=== PATIENT | female | born 1950 | race Caucasian/White ===

== ENCOUNTER 2022-04-20 12:56 | Day surgery (SDC) | payer MEDICARE, BC ==
[~2022-04-20 12:56] MED LIST: Lactated Ringers 1,000 ML IV SCH
[2022-04-20] MEDS ORDERED: DIPRIVAN 200 MG/20 ML IV ONE ×4 (13:35→14:19)
[2022-04-20] MEDS ORDERED: Versed 2 MG/2 ML Injection ONE (13:35)
[2022-04-20] MEDS ORDERED: Lactated Ringers 1,000 ML IV ONE (13:48)
[2022-04-20] MEDS ORDERED: GlucaGen 1 MG ONE (14:24)
[2022-04-20] MEDS ORDERED: TYLENOL EXTRA STRENGTH 500 MG ONE (15:38)
[2022-04-20] MEDS ORDERED: TYLENOL EXTRA STRENGTH 500 MG PO STA (15:41)
[2022-04-20 15:49] VITALS: BP 177/77; PULSE 66; O2SAT 95
--- NOTE | 2022-04-21 09:07 | OP ---
PROCEDURE DATE/TIME: 04/20/2022 1345 PREOPERATIVE DIAGNOSES: 1) History of gastric polyps. 2) Gastroesophageal reflux disease. 3) Dysphagia. 4) Colon polyps. POSTOPERATIVE DIAGNOSES: 1) Severe gastric polyposis. 2) Gastritis with two superficial ulcerations. 3) Minimal hiatal hernia versus physiologic weakness. 4) Diverticulosis. 5) Colonic polyp. 6) Hemorrhoid disease. PROCEDURES: 1) EGD with hot snare polyps and cold biopsies (21) by hot snare. 2) Colonoscopy with hot snare polyps and cold forceps polyps. PROCEDURE PERFORMED BY: Alondra Carroll M.D. ANESTHESIA: MAC. ESTIMATED BLOOD LOSS: Minimal. COMPLICATIONS: None. SPECIMENS: 1) Gastric polyp antral biopsy. 2) Cecal polyp. 3) Descending colon polyp. HISTORY: This is a patient who presents due to history of gastric polyps. She also has reflux symptoms as well as intermittent dysphagia. She also has a history of colon polyps and she is here for colon surveillance. Risks, benefits, alternatives, H&P, consent all reviewed with her and confirmed. All questions were answered to her satisfaction. DESCRIPTION OF PROCEDURE: We brought her back to the endoscopy suite. She was laid in the left lateral decubitus position. A complete time out performed. The scope was inserted into the mouth, oropharynx, down into the esophagus, stomach and then the duodenum. The duodenum was normal and this was seen to the level of the second portion of the duodenum. The scope was then carefully withdrawn back into the stomach antrum. The stomach is definitely loaded with polyps. There are polyps throughout the entire body stomach then to the antrum. There are some in the cardia as well but the entire body has extremely large polyps too including normal sized polyps that are less than 1 cm and then the large polyps that appear to be at least 2 to 2.5 cm all the polyps looked pedunculated and some of them do look inflamed. I took antral biopsies and sent these to pathology for review and to rule out Helicobacter pylori. Outside of the polyps, she had two superficial ulcerations at the junction of the lower body and antrum. We then proceeded to take 21 polyps out for sampling. I took polyps of all sizes and shapes to get a good sample and we focused our attention on the polyps that had significant erythema. At the completion of this there were no polyps of great concern but again she has so many innumerable polyps in all folds and on top of each other but I do think that she will need close follow up of the polyps over her lifetime due to the size and the amount. Each polyp was taken with hot snare. A few were retrieved in the suction trap but many had to be removed individually and the largest was removed with a net. All were retrieved successfully and these were all sent to pathology. The largest polyp was about 2.2 to 2.5 mm in size. We then checked all our sites. Each site looked hemostatic. Each site looked good. The stomach maintained nice insufflation. There were no concerns here. We then carefully withdrew the scope back into the distal esophagus and we carefully withdrew the scope further. The esophagus overall looked normal except for a subtle physiologic weakness at the gastroesophageal junction which is at 37.5. There is no large hiatal hernia here just a very subtle weakness here. She also had one small esophageal varices in her cervical esophagus which was very minimal in size and flattened easily. The scope was then fully removed. I did not find any strictures in her esophagus. The patient tolerated the procedure very well. There were no immediate complications. She was then repositioned for colonoscopy. First, a rectal exam was done. She has two anterior tags with mild internal and external hemorrhoid disease. The scope was then inserted and gently advanced to the level of the cecum. The appendiceal orifice and ileocecal valve were visualized and these were normal. Her prep overall was good. We irrigated and suctioned the small amount of liquid stool. We took a circumferential view as we carefully withdrew the scope. The patient did have the following findings. She had diverticulosis of the left colon with multiple small pockets. She also had two colon polyps. There was one in the cecum that was miniscule about 1 to 2 mm in size taken in entirety with cold forceps, retrieved. Site hemostatic. She also had a polyp in the descending colon which was about 4 to 5 mm in size, semi-sessile. It was taken with hot snare and retrieved with cold forceps this was removed entirely and retrieved appropriately and sent to pathology. The remainder of the colon appeared to be healthy. The scope was then able to be removed outside of the internal hemorrhoids. The remainder of the rectal visualization was normal. The scope was then completely withdrawn. The patient tolerated the procedure very well. There are no immediate complications. She is going to be following up with me as an outpatient. I have discussed all of the preliminary findings with her family. She does also have instructions for full liquid diet and then a soft diet due to a number of large polyps that were removed from her stomach. RECOMMENDATIONS: Reminder EGD six months. Reminder colonoscopy three years.
== END 2022-04-20 15:55 | disposition home or self-care (01) ==
LOC: SDC 12:56
PROVIDERS: ATTEND Surgery
DX: Z09 Encounter for follow-up examination after completed treatment for conditions other than malignant neoplasm (principal); Z87.19 Personal history of other diseases of the digestive system; K21.9 Gastro-esophageal reflux disease without esophagitis; R13.10 Dysphagia, unspecified; K31.7 Polyp of stomach and duodenum; K29.70 Gastritis, unspecified, without bleeding; K44.9 Diaphragmatic hernia without obstruction or gangrene; K57.30 Diverticulosis of large intestine without perforation or abscess without bleeding; K64.4 Residual hemorrhoidal skin tags; K64.8 Other hemorrhoids; D12.0 Benign neoplasm of cecum; D12.4 Benign neoplasm of descending colon
CPT/HCPCS: 99100; J1610; J2250; J2704; A9270-GY

== ENCOUNTER 2022-12-14 09:51 | Day surgery (SDC) | payer MEDICARE, BC ==
[2022-12-14 10:19] VITALS: RESP 16
[2022-12-14] MEDS ORDERED: Lactated Ringers 1,000 ML IV SCH (10:30)
[2022-12-14] MEDS ORDERED: Xylocaine-Mpf 2% 5 Ml Vial ONE (10:48)
[2022-12-14] MEDS ORDERED: DIPRIVAN 200 MG/20 ML IV ONE ×2 (10:48→11:10)
[2022-12-14] MEDS ORDERED: Versed 2 MG/2 ML Injection ONE (10:48)
[2022-12-14 12:27] VITALS: TEMP 97.6
[2022-12-14 12:29] VITALS: BP 161/82; PULSE 70; O2SAT 98
--- NOTE | 2022-12-15 12:32 | OP ---
SURGERY DATE: 12/14/2022 SURGERY TIME: 1050 PREOPERATIVE DIAGNOSIS: 1. SEVERE GASTRIC POLYPOSIS. POSTOPERATIVE DIAGNOSIS: 1. SEVERE GASTRIC POLYPOSIS. 2. MILD GASTROESOPHAGEAL REFLUX DISEASE. 3. MILD GASTRITIS. 4. SMALL ESOPHAGEAL VARICES (1 PROXIMAL, 1 MIDDLE). PROCEDURE: 1. EGD with hot snare polypectomy X 11 and cold biopsies. SURGEON: Dr. Alondra Carroll. ANESTHESIA: MAC. ESTIMATED BLOOD LOSS: Minimal. COMPLICATIONS: None. SPECIMENS: 1. Gastric body polyps and antral biopsy. PROCEDURE DETAILS: This is a patient who presents with significant gastric polyp disease here for surveillance EGD. Risks, benefits, and alternatives have been discussed with her in detail. She understands and agrees. Her H&P and consent have all been reviewed with her and completed. All questions answered to her satisfaction. She wants to proceed. She was then brought back to the endoscopy suite. Laid in the left lateral decubitus position. A complete time-out was performed. The scope was gently introduced into the mouth, oropharynx, down into the esophagus, stomach, and into the duodenum. The first portion of the duodenum and the proximal second portion appeared normal. The scope was withdrawn back into the gastric body. The patient does have a history of significant gastric polyps. Her gastric polyps were severe. She had many that were enlarged and inflamed. These were extensive. There was essentially a cluster of so many polyps overlying each other that when we entered they even bulge out into the lumen. Please see the pictures. I took sampling by removing 11 of these polyps. Any polyps of concern were removed. We did remove some of the largest and most inflammatory appearing polyps. I do not see any other lesions of concern. Again, there is a significant amount of stomach mucosa that is not visualized due to the extensive polyp disease covering the majority of some of the mucosa in many areas including the body which the polyps are the worst. I did also have to use a net to remove each polyp because of their large size. The polyps removed were approximately 1-2 cm in size, all sent to pathology for final review. All sites were hemostatic. The patient tolerated these biopsies very well. I then took cold forceps biopsies in the antrum and then sent these to pathology. Again, we have removed 11 polyps by hot snare. We did cold forceps biopsies in the antrum. All sites looked hemostatic. Everything looks good. There are no complications. The scope was then withdrawn back into the distal esophagus. The patient has very mild reflux changes. No sign of Liu's. When we further withdrew the scope, the mucosa itself in the remainder of the esophagus was normal. She had 2 very small varices, 1 proximally and 1 in the middle of her esophagus, and these were less than 5 mm, very small, and subtle. Patient tolerated the procedure well. There are no immediate complications. I recommended an anti-reflux diet and lifestyle to her. I have discussed this with her family member and I have also discussed that if this can keep her symptoms at bay, the goal would be to decrease her proton pump inhibitor to qod to see if this will help decrease the extensive nature of the polyps. PLAN: EGD in 6 months for surveillance of severe gastric polyposis.
== END 2022-12-14 12:36 | disposition home or self-care (01) ==
LOC: SDC 09:51
PROVIDERS: ATTEND Surgery
DX: K21.9 Gastro-esophageal reflux disease without esophagitis (principal); K31.7 Polyp of stomach and duodenum; K29.70 Gastritis, unspecified, without bleeding; I85.00 Esophageal varices without bleeding
CPT/HCPCS: 99100; J2250; J2704

== ENCOUNTER 2023-09-13 11:21 | Day surgery (SDC) | payer MEDICARE, BC ==
[2023-09-13] MEDS ORDERED: Lactated Ringers 1,000 ML IV ONE (11:31)
[2023-09-13] MEDS: Lactated Ringers 1,000 ML IV SCH (11:35)
[2023-09-13] MEDS ORDERED: Xylocaine-Mpf 2% 5 Ml Vial ONE (12:18)
[2023-09-13] MEDS ORDERED: Versed 2 MG/2 ML Injection ONE (12:18)
[2023-09-13] MEDS ORDERED: DIPRIVAN 200 MG/20 ML IV ONE ×2 (12:18→12:38)
[2023-09-13 13:23] VITALS: BP 115/64; PULSE 69; RESP 18
[2023-09-13 13:35] VITALS: TEMP 96.9; O2SAT 95
--- NOTE | 2023-09-15 12:58 | OP ---
SURGERY DATE/TIME: 09/13/2023 3197 - [id number] PREOPERATIVE DIAGNOSES: Reflux and history of severe gastric polyposis. POSTOPERATIVE DIAGNOSES: 1) Multiple gastric polyps. 2) Peptic ulcer disease with multiple antral ulcers. 3) Reflux esophagitis. PROCEDURE: Esophagogastroduodenoscopy with hot snare, gastric polypectomies and cold forceps biopsies. SURGEON: Alondra Carroll MD ANESTHESIA: MAC. ESTIMATED BLOOD LOSS: Minimal. COMPLICATIONS: None. SPECIMENS: 1) Antrum. 2) GE junction. 3) Polyps. INDICATIONS: This is a patient who has been having some upper GI symptoms with reflux and some discomfort as well as a history of severe gastric polyposis. She presents for EGD. The risks, benefits, alternatives of the procedure have been discussed with her in detail. She understands. Her H and P and consent have all been reviewed with her. All her questions have been answered, and she would like to proceed. DESCRIPTION OF PROCEDURE: She was then placed in the left lateral decubitus position. A complete time-out was performed. The scope was introduced gently into the mouth, oropharynx, down into the esophagus, stomach and then the duodenum. The scope was advanced to approximately the level of the second portion of the duodenum. The visualized duodenum was normal. The scope was withdrawn back into the stomach. There were 5 small antral ulcers, approximately 1 cm and below. These were cratered. None of them were actively bleeding. There was some trace old blood in the stomach. This was minimal. We took antral biopsies around the edge of the largest ulcer crater to send for H pylori testing. On retroflexed view, the number of polyps in the stomach appears to be significantly decreased from before. She does still have innumerable polyps. These all appear to be benign. I did sample multiple of the largest polyps, and I took these with a hot snare and sent these to Pathology for sampling. All sites were hemostatic. I did not see any other findings of concern. At this point, we then withdrew back into the distal esophagus. In the distal esophagus, she does have some mild reflux esophagitis, possible early Liu disease. We took cold biopsies with forceps. These sites were all hemostatic after biopsy, and then we carefully withdrew the scope. The remainder of the esophagus was normal. Patient tolerated the procedure very well. There were no immediate complications. I have recommended to her dual therapy with PPI, Carafate, and diet changes as well as lifestyle changes for the reflux, and then I have also gone through post procedure instructions with her. She will also be following up with me as an outpatient, and we will plan to do another EGD in approximately 3 months to ensure ulcer resolution. Patient tolerated the procedure very well. All other remaining questions were answered.
== END 2023-09-13 13:42 | disposition home or self-care (01) ==
LOC: SDC 11:21
PROVIDERS: ATTEND Surgery
DX: Z87.19 Personal history of other diseases of the digestive system (principal); K21.9 Gastro-esophageal reflux disease without esophagitis; K31.89 Other diseases of stomach and duodenum; K27.9 Peptic ulcer, site unspecified, unspecified as acute or chronic, without hemorrhage or perforation; K21.00 Gastro-esophageal reflux disease with esophagitis, without bleeding
CPT/HCPCS: 99100; J2250; J2704

== ENCOUNTER 2023-11-15 09:31 | Day surgery (SDC) | payer MEDICARE, BC ==
[2023-11-15] MEDS ORDERED: Lactated Ringers 1,000 ML IV ONE (09:38)
[2023-11-15] MEDS: Lactated Ringers 1,000 ML IV SCH (09:45)
[2023-11-15] MEDS ORDERED: Xylocaine-Mpf 2% 5 Ml Vial ONE (11:46)
[2023-11-15] MEDS ORDERED: DIPRIVAN 200 MG/20 ML IV ONE ×2 (11:46→11:59)
[2023-11-15 12:37] VITALS: BP 140/75; PULSE 68; RESP 16; TEMP 97.4; O2SAT 98
--- NOTE | 2023-11-16 10:55 | OP ---
SURGERY DATE/TIME: 11/15/2023 [id number] PREOPERATIVE DIAGNOSIS: Peptic ulcer disease and multiple gastric polyps, here for surveillance for peptic ulcer disease. POSTOPERATIVE DIAGNOSES: 1) Resolved peptic ulcer disease. 2) Very minimal residual gastritis. 3) Innumerable gastric polyps. 4) Gastroesophageal reflux disease. PROCEDURE: Esophagogastroduodenoscopy with biopsies. SURGEON: Alondra Carroll MD ANESTHESIA: MAC. ESTIMATED BLOOD LOSS: Minimal. COMPLICATIONS: None. SPECIMENS: Gastric polyp biopsies (cardia/upper body and gastric antrum). INDICATIONS: This is a patient who presents with significant peptic ulcer disease. She had at least 5 ulcers on her last scope. She has had improvement with her symptoms, and we are here to repeat her EGD to ensure ulcer resolution. I will also look at her gastric polyps as she is known to have significant gastric polyp history as well. Her H and P and consent were all reviewed with her and confirmed. All questions answered to her satisfaction. She would like to proceed. DESCRIPTION OF PROCEDURE AND FINDINGS: She was brought to the endoscopy suite, laid in the left lateral decubitus position. A complete time-out was performed. The scope was introduced gently into the mouth, oropharynx, down to the esophagus, stomach and duodenum. The first portion of the duodenum and the visualized second portion of the duodenum were normal. The scope was withdrawn back into the antrum. She has very subtle trace gastritis on visualization in the antrum. I see a subtle scar from an old ulcer. Her stomach looks excellent. She has significantly improved from prior. On retroflexed view, she does have extensive polyposis of the stomach. There are innumerable polyps. None of them look concerning. We have taken great care to look at all the nooks and crannies here, and I do not see anything of concern. Everything looks like benign polyp disease, and I have previously benign biopsies. She does have many very small, more sessile polyps that essentially are almost overlapping each other in the cardia and upper body, so I did take additional samples here. Again, this all looks benign, but we took samples to ensure this and sent these to Pathology. All of these sites are hemostatic. We then un-retroflexed and then carefully withdrew the scope, taking an additional look. Back in the GE junction, the patient does have some mild reflux here. I have biopsied her previously to check for Liu. I do not see anything worsening here. This actually looks a significant amount better, and so we did not do any additional biopsies today. The remainder of the esophagus looks normal. She has 1 tiny area of a slightly enlarged possible varix in the cervical esophagus, but this is very subtle and minimal. The scope was then able to be fully removed. The patient tolerated the procedure very well. There were no immediate complications. Tentatively, I am going to put a reminder in our system for her to follow up with us in 2 years to discuss a possible EGD to relook at her esophagus based on her symptoms if she is continuing to have any reflux. We have also set her up to see me in approximately a month. I discussed with her family antireflux lifestyle and diet, and if she is able to decrease her PPI and/or stop it completely based on diet and lifestyle changes, then this may be possible. If not, if she continues to have any symptoms, I have recommended that she stay on her PPI, and they understand.
== END 2023-11-15 12:47 | disposition home or self-care (01) ==
LOC: SDC 09:31
PROVIDERS: ATTEND Surgery
DX: K29.70 Gastritis, unspecified, without bleeding (principal); K27.9 Peptic ulcer, site unspecified, unspecified as acute or chronic, without hemorrhage or perforation; K31.7 Polyp of stomach and duodenum; K21.9 Gastro-esophageal reflux disease without esophagitis
CPT/HCPCS: 99100; J2704